=== PATIENT | female | born 1935 | race Caucasian/White ===

== ENCOUNTER 2016-12-10 07:42 | Emergency (ER) | payer OTHER ==
[2016-12-10 07:48] VITALS: TEMP 97.9; O2SAT 96
--- NOTE | 2016-12-10 08:02 | EDPHY ---
HPI/HX/ROS/PE/MDM Narrative: CHIEF COMPLAINT: Balance difficulties, nausea HISTORY OF PRESENT ILLNESS: This patient is an 81 year old female arriving with her complaining of trouble balancing intermittently over the last six weeks, with an episode this morning with associated nausea. She states she has felt as if she needs to catch her balance when turning, and two weeks ago, turned too quickly and fell. She denies striking her head or any loss of consciousness at that time. Today, she states she turned too quickly and developed a spinning sensation and associated nausea. She denies vomiting, headache, tinnitus, or changes in vision including diplopia. Her at bedside states her blood pressure was elevated at home today, at 185/100. The patient mentions her grandfather had Meniere's disease, and is curious whether her symptoms could be related to this. No fever, chills, chest pain, shortness of breath, palpitations, vomiting , diarrhea, urinary complaints, headache. REVIEW OF SYSTEMS: Aside from elements discussed in the HPI, a comprehensive 10-point review of systems was reviewed and is negative. PAST MEDICAL HISTORY: Rheumatoid arthritis. SOCIAL HISTORY: at bedside. [facility] patient. VITAL SIGNS: Reviewed by me GENERAL: Well-developed, well-nourished, resting comfortably in no respiratory distress. HEENT: Atraumatic. Eyes: No nystagmus. PERRL, EOMI, no icterus, no injection. Mouth: moist mucous membranes. No erythema or lesions. Neck: supple with no adenopathy. No carotid buits. LUNGS: Clear to auscultation bilaterally, no wheezes, rhonchi or rales. CARDIAC: Regular rate and rhythm, no rubs, murmurs or gallops. No carotid bruits. ABDOMEN: Soft, nontender, nondistended, bowel sounds normal. BACK: No CVA tenderness. EXTREMITIES: Contraction of feet and hands due to rheumatoid arthritis. No trauma. No edema. Moving all extremities per usual. NEURO: Alert and oriented, cranial nerves II through XII are intact. Motor strength 5 over 5 in all major muscle groups. Sensation intact to light touch. Normal finger to nose, heel to monzon. Normal gait. SKIN: Warm and dry, no rash. PSYCHIATRIC: Normal mentation, no agitation. Portions of this note were transcribed by a medical staff coordinator. I personally performed a history, physical exam, medical decision making, and confirmed accuracy of information the transcribed note. ED Course: This patient is an 81 year old female presenting with six week history of intermittent trouble balancing, with acute episode this morning and associated nausea. Physical exam unremarkable, no nystagmus, neurologically intact. Plan for labs including CBC, BMP, lipase. Plan for MRI brain. Plan to administer 12.5mg IV Meclizine, 4mg IV Zofran for symptom relief. Dr. Garces, radiologist, reports MRI brain negative for acute processes. On reexamination, patient reports improvement in her symptoms. No longer feeling off balance with movement. Plan to discharge home in good condition with prescription for meclizine. She will follow up with her primary care provider. Return precautions discussed. The patient is comfortable with this plan. MDM: Diff dx considered included but not limited to vertigo, inner ear infection, electrolyte abnormality, TIA, CVA, hemorrhage, intracranial bleeding. - Data Points Imaging Results: MRI brain: Impression: 1. Mild periventricular and deep hemispheric white matter change which is nonspecific and can be seen with small vessel ischemic disease. No evidence for acute infarct. 2. Nonspecific fluid right mastoid air cells. Results discussed with Jamie Azul PA-C. Dictated By: Elio Garces MD Imaging: Discussed imaging studies w/ orthopedically impaired teacher Radiologist Laboratory Results: Laboratory Results 12/10/16 08:40 12/10/16 08:40 Medications Given: Discontinued Medications Sodium Chloride (Ns) 500 mls @ 1,000 mls/hr IV ONCE ONE PRN Reason: Protocol Stop: 12/10/16 08:43 Last Admin: 12/10/16 08:47 Dose: 500 mls Meclizine HCl (Meclizine Hcl) 12.5 mg PO EDNOW ONE Stop: 12/10/16 08:14 Last Admin: 12/10/16 08:43 Dose: 12.5 mg Ondansetron HCl (Zofran) 4 mg IVP EDNOW ONE Stop: 12/10/16 08:15 Last Admin: 12/10/16 08:43 Dose: 4 mg General Initial Vital Signs: Initial Vital Signs Temperature (C) 36.6 C 12/10/16 07:42 Heart Rate 88 12/10/16 07:42 Respiratory Rate 18 12/10/16 07:42 Blood Pressure 160/98 H 12/10/16 07:42 O2 Sat (%) 96 12/10/16 07:42 O2 Delivery Mode Room Air Allergies/Adverse Reactions: Sulfa (Sulfonamide Antibiotics) Allergy (Unknown, Verified 12/10/16 07:44) Home Medications: Medication Instructions Recorded [facility] 06/02/14 Meclizine HCl [Meclizine HCl 25 mg 12.5 - 25 mg PO BID PRN #20 tab 12/10/16 (RX,OTC)] Departure - Departure Disposition: Home, Routine, Self-Care Clinical Impression: Vertigo Condition: Good Instructions: Benign Paroxysmal Positional Vertigo (ED), Dizziness (ED) Additional Instructions: 1. Take your Meclizine as prescribed regularly today and tomorrow, then as needed for dizziness. 2. Follow up with your primary care provider at [facility] in the next week. 3. Return to the emergency department if you develop severe headache, vomiting, weakness or numbness on one side of your body, slurred speech, or other worsening of condition. Referrals: [facility] [Other] - As per Instructions Prescriptions: Meclizine HCl [Meclizine HCl 25 mg (RX,OTC)] 12.5 - 25 mg PO BID PRN #20 tab PRN Reason: Dizziness Report Scribed for: Freda Mullen Report Scribed by: Denise Rodriguez Date of Report: 12/10/16 Time of Report: 08:14
[2016-12-10] MEDS ORDERED: MECLIZINE HCL 25 MG TAB PO ONE (08:13)
[2016-12-10] MEDS ORDERED: NS 500 ML IV ONE (08:14)
[2016-12-10] MEDS ORDERED: ONDANSETRON 4 MG/2 ML VIAL IVP ONE (08:14)
[2016-12-10 08:47] LABS: % IMMATURE GRANULYOCYTES 0.4 % (0.0-1.1); ABSOLUTE IMMATURE GRANULOCYTES 0.01 10^3/uL (0.00-0.10); ADD DIFF? NO; ADD MORPH? NO; ADD SCAN? NO; ATYPICAL LYMPHOCYTE FLAG 30 (0-99); FRAGMENT RBC FLAG 0 (0-99); HEMATOCRIT 37.2 % (38.0-47.0); HEMOGLOBIN 12.7 g/dL (12.6-16.3); LEFT SHIFT FLG 0 (0-99); LIPEMIA HEMOLYSIS FLAG 90 (0-99); MEAN CELL HEMOGLOBIN 30.6 pg (27.9-34.1); MEAN CELL HEMOGLOBIN CONCENTR. 34.1 g/dL (32.4-36.7); MEAN CELL VOLUME 89.6 fL (81.5-99.8); MEAN PLATELET VOLUME 10.4 fL (8.7-11.7); PLATELET CLUMPS FLAG 10 (0-99); PLATELET COUNT 142 10^3/uL (150-400); RED BLOOD CELL COUNT 4.15 10^6/uL (4.18-5.33); RED CELL DISTRIBUTION WIDTH 12.2 % (11.5-15.2)
[2016-12-10 09:02] LABS: ANION GAP 9 mEq/L (8-16); CALCIUM 8.9 mg/dL (8.5-10.4); CARBON DIOXIDE 21 mEq/l (22-31); CHLORIDE 109 mEq/L (97-110); CREATININE 0.7 mg/dL (0.6-1.0); GLOMERULAR FILTRATION RATE > 60; GLUCOSE 90 mg/dL (70-100); SODIUM 139 mEq/L (134-144)
[2016-12-10 11:13] VITALS: BP 135/71; PULSE 72; RESP 16
== END 2016-12-10 11:12 | disposition home or self-care (01) ==
DX: R42 Dizziness and giddiness (principal); E86.9 Volume depletion, unspecified
CPT/HCPCS: 70551; 96374; 99285; J2405

== ENCOUNTER 2017-08-11 13:55 | Emergency (ER) | payer OTHER ==
[2017-08-11 14:05] VITALS: TEMP 98.6
--- NOTE | 2017-08-11 16:31 | EDPHY ---
H & P Stated Complaint: this morning pt felt sound in ears/resolved/bp elevated r/t baseline Time Seen by Provider: 08/11/17 16:17 HPI/ROS: CHIEF COMPLAINT: Sound in ears HISTORY OF PRESENT ILLNESS: The patient is an 81-year-old female with a history of rheumatoid arthritis and hypertension. She also reports that over the last year she has had episodes of vertigo. She had an MRI of her brain 6 months ago that was negative. She states that this morning for about 15 min she had a noise in both ears that sounded like sand being shifted or like music. She denies throbbing or pulsatile sensation or sound. She checked her blood pressure and it was elevated 158/100. This concerned her and she came to the ER. Her symptoms have resolved before she got here. No nausea vomiting. No chest pain or shortness of breath. No headache. No focal weakness or deficits. No vertigo or dizziness. No lightheadedness. REVIEW OF SYSTEMS: Constitutional: denies: chills, fever, recent illness, recent injury EENTM: denies: blurred vision, double vision, nose congestion Respiratory: denies: cough, shortness of breath Cardiac: denies: chest pain, irregular heart rate, lightheadedness, palpitations Gastrointestinal/Abdominal: denies: abdominal pain, diarrhea, nausea, vomiting, blood streaked stools Genitourinary: denies: dysuria, frequency, hematuria, pain Musculoskeletal: denies: joint pain, muscle pain Skin: denies: lesions, rash, jaundice, bruising Neurological: See HPI denies: headache, numbness, paresthesia, tingling, dizziness, weakness Hematologic/Lymphatic: denies: blood clots, easy bleeding, easy bruising Immunologic/allergic: denies: HIV/AIDS, transplant EXAM: GENERAL: Well-appearing, well-nourished and in no acute distress. HEAD: Atraumatic, normocephalic. EYES: Pupils equal round and reactive to light, extraocular movements intact, sclera anicteric, conjunctiva are normal. ENT: TMs normal, nares patent, oropharynx clear without exudates. Moist mucous membranes. NECK: Normal range of motion, supple without lymphadenopathy or JVD. LUNGS: Breath sounds clear to auscultation bilaterally and equal. No wheezes rales or rhonchi. HEART: Regular rate and rhythm without murmurs, rubs or gallops. ABDOMEN: Soft, nontender, normoactive bowel sounds. No guarding, no rebound. No masses appreciated. BACK: No CVA tenderness, no spinal tenderness, step-offs or deformities EXTREMITIES: Normal range of motion, no pitting or edema. No clubbing or cyanosis. NEUROLOGICAL: Cranial nerves II through XII grossly intact. Normal speech, normal gait. 5/5 strength, normal movement in all extremities, normal sensation PSYCH: Normal mood, normal affect. SKIN: Warm, dry, normal turgor, no visible rashes or lesions. Source: Patient, Family Exam Limitations: No limitations - Personal History Current Tetanus/Diphtheria Vaccine: No - Medical/Surgical History Hx Asthma: No Hx Chronic Respiratory Disease: No Hx Diabetes: No Hx Cardiac Disease: No Hx Renal Disease: No Hx Cirrhosis: No Hx Alcoholism: No Hx HIV/AIDS: No Hx Splenectomy or Spleen Trauma: No Other PMH: RA, Sprue. dementia - Social History Smoking Status: Never smoked Alcohol Use: Sober Drug Use: None Constitutional: Initial Vital Signs Temperature (C) 37 C 08/11/17 14:02 Heart Rate 94 08/11/17 14:02 Respiratory Rate 16 08/11/17 14:02 Blood Pressure 149/117 H 08/11/17 14:02 O2 Sat (%) 95 08/11/17 14:02 O2 Delivery Mode Room Air Allergies/Adverse Reactions: Sulfa (Sulfonamide Antibiotics) Allergy (Unknown, Verified 08/11/17 14:01) Home Medications: Medication Instructions Recorded [facility] 06/02/14 Medical Decision Making ED Course/Re-evaluation: The patient has a normal neurologic exam. She is currently asymptomatic. Her blood pressure is improved without intervention. She and are reassured in her eager to go home. They declined further workup or testing or observation in the ER. Differential Diagnosis: Partial list of the Differential diagnosis considered include but were not limited to; hypertension, anxiety and although unlikely based on the history and physical exam, I also considered thrombus, dissection, aneurysm, AV malformation, tumor. I discussed these differential diagnoses and the plan with the patient as well as the usual and expected course. The patient understands that the diagnosis is provisional and that in medicine we are not always correct and that further workup is often warranted. Usual and customary warnings were given. All of the patient's questions were answered. The patient was instructed to return to the emergency department should the symptoms at all worsen or return, otherwise to followup with the physician as we discussed. Departure - Departure Disposition: Home, Routine, Self-Care Clinical Impression: Hypertension Qualifiers: Hypertension type: unspecified Qualified Code(s): I10 - Essential (primary) hypertension Condition: Fair Instructions: Hypertension (ED) Referrals: [facility] [Other] - 2-3 days, call for appt.
[2017-08-11 16:47] VITALS: BP 172/94; PULSE 89; RESP 18; O2SAT 94
== END 2017-08-11 16:47 | disposition home or self-care (01) ==
DX: I10 Essential (primary) hypertension (principal)